=== PATIENT | female | born 1995 | race African-American/Black ===

== ENCOUNTER 2019-07-06 12:51 | Outpatient (CLI) | payer OTHER ==
--- NOTE | 2019-07-06 13:58 | ULT ---
OB ULTRASOUND: 07/06/19 HISTORY: anatomy. FINDINGS: A single live intrauterine twin gestation is seen with measurements corresponding to an estimated ges tational age of 24 weeks, 3 days and MYLES at 10/23/19. The estimated weight measures 692 grams or 1 lb. 8 oz. (56th percentile by Hadlock criteria). biometry: BPD 5.99 cm 24 weeks, 4 days HC 22.04 cm 24 weeks, 1 day AC 19.75 cm 24 weeks, 3 days FL 4.33 cm 24 weeks, 2 days heart rate measures 138 beats per minute. Placenta is posteriorly located without evidence of p lacenta previa. BRYAN measures 17.6 cm. Cervix measures 7 cm in length. A three vessel cord, cord insertion, kidneys, bladder, stomach, four chambered heart, lateral v entricles, cerebellum, spine, lips/nose, upper and lower extremities are visualized. No definite feta l anomalies are seen. IMPRESSION: Single live IUP of 24 weeks, 3 days estimated gestational age and MYLES at 10/23/2019. POS: HILDA
== END 2019-07-06 12:52 | disposition home or self-care (01) ==
LOC: BICULT 12:51
PROVIDERS: ATTEND Family Medicine
DX: O09.892 Supervision of other high risk pregnancies, second trimester (principal); Z3A.24 24 weeks gestation of pregnancy
CPT/HCPCS: 76805

== ENCOUNTER 2019-10-20 10:44 | Inpatient (IN) | payer OTHER ==
[2019-10-20] MEDS ORDERED: Ondansetron PF 4 MG/2 ML Vial IVP PRN ×3 (11:15→15:07)
[2019-10-20] MEDS ORDERED: Bicitra 30 ML UDCUP PO SCH (11:15)
[2019-10-20] MEDS ORDERED: Clindamycin/D5W 900 MG in Premix Bag 1 BAG IVPB SCH (11:15)
[2019-10-20] MEDS ORDERED: hydrALAZINE 20 MG/ML VIAL SLOW IVP PRN (11:15)
[2019-10-20] MEDS ORDERED: Promethazine HCl 25 MG/ML VIAL IM PRN ×3 (11:15→15:07)
[2019-10-20 11:25] VITALS: BMI 35.6
[2019-10-20] MEDS ORDERED: MORPHINE 5 MG/10 ML PF VIAL ONE (11:36)
[2019-10-20] MEDS ORDERED: PHENYLEPHRINE-NS 100 MCG/ML 10 ML SYRINGE ONE (11:37)
[2019-10-20] MEDS ORDERED: Oxytocin 10 UNITS/ML VIAL ONE (11:37)
[2019-10-20] MEDS ORDERED: EPHEDRINE 25 MG/5 ML SYRINGE ONE (11:37)
[2019-10-20] MEDS ORDERED: Ondansetron PF 4 MG/2 ML Vial ONE (11:37)
[2019-10-20 11:46] LABS: Hemoglobin 9.1 g/dL (12.0-16.0); Mean Corpuscular HGB CONC 31.7 g/dL (32.0-36.0); Mean Corpuscular Hemoglobin 27.8 pg (27.0-31.0); Mean Corpuscular Volume 87.7 fL (78.0-98.0); Mean Platelet Volume 8.3 fL (7.4-10.4); Platelet Count 269 thou/uL (130-400); RBC Distribution Width 13.6 % (11.5-14.5); Red Blood Cell (RBC) Count 3.26 mill/uL (4.20-5.40); White Blood Cell (WBC) Count 8.3 thou/uL (4.8-10.8)
[2019-10-20] MEDS ORDERED: Gentamicin Sulfate 80 MG in Premix Bag 1 BAG IVPB SCH (12:00)
[2019-10-20] MEDS: Lactated Ringer's 1,000 ML IV SCH ×2 (12:18→22:00)
[2019-10-20 12:29] LABS: HBSAg Index 0.18 S/CO (0-0.99); Hep B Surf Ag Non-Reactive S/CO (NonReactive); Syphilis Antibody Nonreactive (Nonreactive); Syphilis Antibody Index 0.04 S/CO (<1.00 Non-Reactive)
[2019-10-20] MEDS ORDERED: Methylergonovine 0.2 MG/ML VIAL ONE (13:05)
[2019-10-20] MEDS ORDERED: Fentanyl 100 MCG/2 ML VIAL ONE (13:06)
[2019-10-20] MEDS ORDERED: Midazolam HCl 2 mg/2 ml Vial ONE (13:06)
[2019-10-20] MEDS ORDERED: Ketorolac Tromethamine 30 MG/ML VIAL IVP PRN (13:24)
[2019-10-20] MEDS ORDERED: Ondansetron HCl/PF 4 MG/2 ML Vial IVP PRN (13:24)
[2019-10-20] MEDS ORDERED: Naloxone HCl 0.4 mg/ml Vial IVP PRN ×2 (13:24)
[2019-10-20] MEDS ORDERED: HYDROmorphone 2 MG/ML VIAL SLOW IVP PRN (13:24)
[2019-10-20] MEDS ORDERED: diphenhydrAMINE 50 MG/ML VIAL IVP PRN (13:24)
[2019-10-20] MEDS ORDERED: L&D-Morphine 4 MG/ML VIAL SLOW IVP PRN (13:24)
[2019-10-20] MEDS ORDERED: Naloxone HCl 0.4 mg/ml Vial IV PRN (13:24)
[2019-10-20] MEDS ORDERED: Meperidine HCl/PF 25 MG/ML VIAL SLOW IVP PRN (13:24)
[2019-10-20] MEDS ORDERED: Promethazine HCl 25 MG SUPP PR PRN (13:24)
[2019-10-20] MEDS ORDERED: Communication Order-Pharmacy FS SCH (13:30)
[2019-10-20] MEDS ORDERED: Ketorolac Tromethamine 30 MG/ML VIAL IVP SCH (13:30)
[2019-10-20] MEDS ORDERED: Ketorolac Tromethamine 30 MG/ML VIAL ONE (13:30)
--- NOTE | 2019-10-20 13:46 | PDOC.OPDEL ---
OB Operative/Delivery Note Delivery Dr/Surgeon: Toni Pryor MD Assist: Dena Milton DO, PGY-2 Pre-Delivery Diagnosis: scheduled section Procedure/Post Delivery Dx: repeat low transverse CS Weeks gestation: 39 Anesthesia: spinal - Additional Findings/Plan Placenta delivered: manual removal findings: low transverse hysterotomy without extension Estimated blood loss: 435 mL Compilations/Other Findings: Date of Procedure:10/20/2019, 1300 Attending Primary Surgeon: Toni Pryor MD [employer] Surgeon: Dena Milton DO, PGY-2 Procedure: Repeat low transverse caesarean section Preoperative Diagnosis: 1)Term intrauterine 2)Previous Postoperative Diagnosis: 1)same as above Anesthesia: spinal Indications: The patient is a 24 year old G2,P1001 now 2001 female at 39 weeks gestation who presents for a repeat scheduled . Procedure in Detail: After risks, benefits, and alternatives were explained to the patient, she gave informed consent. Pre-operative antibiotics included Cefazolin 2 gram IV. The patient was taken to the operating room and spinal anesthesia was initiated. She was placed in the supine position with a left tilt and prepped and draped in usual sterile fashion. A Pfannenstiel incision was made with a scalpel and carried down to the level of the fascia which was sharply nicked. The fascial cut was extended bilaterally with Nova sissors. The inferior and superior edges of the cut fascial edges were elevated with Nancy clamps and the underlying rectus muscles were sharply and bluntly dissected free. The recti were divided digitally and retracted manually. The peritoneum was entered bluntly and retracted manually. Bladder blade was placed. The uterus was entered in the midline with the scalpel. Meconium stained fluid was seen. The hysterotomy was extended manually in cranio-caudal direction. The was noted to be vertex and was easily delivered by fundal pressure. Mouth and nares were bulb suctioned. Cord clamped and cut and grossly normal female was handed to waiting nurse. Cord blood was obtained. Placenta was manually extracted, found to be intact with 3 vessel cord and discarded. The uterus was externalized and the endometrium was curetted with a dry lap. Uterus was noted to be boggy throughout and pitocin and methergine were administered. The bladder blade was replaced and the uterus was closed with a running locking 1-0 Monocryl suture. An additional two horizontal mattress sutures were placed. Following this hemostasis was noted. The abdomen was irrigated with saline and suctioned free of clots. Septa film was placed. The uterus was internalized and the hysterotomy was again noted to be hemostatic. The peritoneum was closed with a running non-locking 3-0 Vicryl suture. The fascia was closed with a running non-locking PDS suture. The subcutaneous tissue was irrigated and there were a few bleeders cauterized with Bovie tip. The subcutaneous tissue was then closed with 3 simple interrupted 3-0 Vicryl suture. The skin was approximated with jeramy and a pressure dressing was placed. All counts were correct. The patient tolerated the procedure well and was taken to the recovery room in stable condition. Quantitative Blood Loss: 435 ml Complications: Uterine atony, requiring administration of pitocin and methergine. Specimens: Cord blood sent to lab for blood type Findings: Grossly normal female with Apgars of 9 and 9. Grossly normal placenta with 3 vessel cord discarded. Drains: Draper to gravity draining clear urine Post delivery plan: routine recovery
[2019-10-20] MEDS ORDERED: hydrALAZINE 20 MG/ML VIAL SLOW IVP SCH (15:07)
[2019-10-20] MEDS ORDERED: HYDROcodone/Acetaminophen 5/325 mg Tablet PO PRN (15:07)
[2019-10-20] MEDS ORDERED: Lanolin Ointment 7 GM TUBE TOP PRN (15:07)
[2019-10-20] MEDS ORDERED: Bisacodyl 10 MG SUPP PR PRN (15:07)
[2019-10-20] MEDS ORDERED: NS / Oxytocin 40 units/1000ml 1,000 ML ONE (15:27)
[2019-10-20] MEDS: Ketorolac Tromethamine 30 MG/ML VIAL IVP SCH (17:54)
[2019-10-20] MEDS ORDERED: Sodium Chloride 0.9% 10 ML ONE (20:18)
[2019-10-20] MEDS: diphenhydrAMINE 25 MG CAP PO PRN (20:33)
[2019-10-20] MEDS: Docusate Calcium (SURFAK) 240 MG CAP PO SCH (20:41)
[2019-10-20] MEDS: Ferrous Sulfate 325 MG TAB PO SCH (20:42)
[2019-10-21] MEDS ORDERED: Sodium Chloride 0.9% 0 ML ONE (00:08)
[2019-10-21] MEDS: Ketorolac Tromethamine 30 MG/ML VIAL IVP SCH ×2 (00:43→05:33)
[2019-10-21] MEDS: diphenhydrAMINE 25 MG CAP PO PRN ×2 (00:51→08:02)
[2019-10-21] MEDS ORDERED: Sodium Chloride 0.9% 10 ML ONE ×2 (05:20→07:13)
[2019-10-21 05:49] LABS: Hemoglobin 7.3 g/dL (12.0-16.0); Mean Corpuscular HGB CONC 31.9 g/dL (32.0-36.0); Mean Corpuscular Hemoglobin 27.8 pg (27.0-31.0); Mean Corpuscular Volume 87.3 fL (78.0-98.0); Mean Platelet Volume 8.1 fL (7.4-10.4); Platelet Count 221 thou/uL (130-400); RBC Distribution Width 13.6 % (11.5-14.5); Red Blood Cell (RBC) Count 2.63 mill/uL (4.20-5.40); White Blood Cell (WBC) Count 8.2 thou/uL (4.8-10.8)
[2019-10-21] MEDS: HYDROcodone/Acetaminophen 5/325 mg Tablet PO PRN ×3 (08:03→16:57)
[2019-10-21] MEDS: Docusate Calcium (SURFAK) 240 MG CAP PO SCH ×2 (08:03→21:39)
[2019-10-21] MEDS: Ferrous Sulfate 325 MG TAB PO SCH ×2 (08:05→16:58)
[2019-10-21] MEDS ORDERED: Adacel (T-DAP) 0.5 ML SYRINGE IM ONE (09:00)
[2019-10-21] MEDS: Ibuprofen 800 MG TAB PO SCH ×2 (13:37→21:39)
[2019-10-21] MEDS: Simethicone Chewable 80 MG TAB PO PRN ×2 (13:37→21:38)
[2019-10-22] MEDS: HYDROcodone/Acetaminophen 5/325 mg Tablet PO PRN ×4 (00:48→20:58)
[2019-10-22] MEDS: Ibuprofen 800 MG TAB PO SCH ×3 (05:38→20:58)
[2019-10-22] MEDS: Ferrous Sulfate 325 MG TAB PO SCH ×2 (09:01→20:58)
[2019-10-22] MEDS: Docusate Calcium (SURFAK) 240 MG CAP PO SCH ×2 (09:01→20:58)
[2019-10-23] MEDS: Ibuprofen 800 MG TAB PO SCH ×2 (05:40→15:09)
[2019-10-23 09:58] VITALS: BP 126/67; TEMP 98.8
[2019-10-23] MEDS: Ferrous Sulfate 325 MG TAB PO SCH (12:15)
[2019-10-23] MEDS: HYDROcodone/Acetaminophen 5/325 mg Tablet PO PRN (12:15)
[2019-10-23] MEDS: Docusate Calcium (SURFAK) 240 MG CAP PO SCH (12:16)
== END 2019-10-23 15:15 | disposition home or self-care (01) | DRG 788 ==
LOC: L&D-LIB 10:44 → 3SE 16:02 → EDSTATUS 10-31 13:43
PROVIDERS: ADMIT Family Medicine; ATTEND Family Medicine
PROC: 10D00Z1 Extraction of Products of Conception, Low, Open Approach (ICD-10-PCS; principal; 2019-10-20)
DX: O34.211 Maternal care for low transverse scar from previous cesarean delivery (principal); O99.214 Obesity complicating childbirth; Z3A.39 39 weeks gestation of pregnancy; Z37.0 Single live birth; O62.2 Other uterine inertia
CPT/HCPCS: 36415; 51702; 85027; 86780; 86850; 86900; 86901; 87340; 96372; 99283; J1200; J1580; J1885; J2210; J2250; J2270; J2274; J2310; J2405; J2550; J2590; J3010; Q0163

== ENCOUNTER 2020-07-31 10:24 | Outpatient (CLI) | payer OTHER | END 2020-07-31 10:25 | disposition home or self-care (01) | LOC: BICULT 10:24 | PROVIDERS: ATTEND Family Medicine | DX: O09.892 Supervision of other high risk pregnancies, second trimester (principal) | CPT/HCPCS: 76805 ==

== ENCOUNTER 2022-12-05 01:58 | Emergency (ER) | payer OTHER ==
[2022-12-05 03:25] LABS: #Eosinphils 0.1 thou/uL (0.0-0.7); #Monocytes 0.9 thou/uL (0.11-0.59); #Neutrophils 6.1 thou/uL (1.40-6.50); %Basophils 0.3 % (0.0-1.0); %Lymphocytes 21.6 % (21.0-51.0); %Monocytes 9.3 % (0.0-10.0); %Neutrophils 67.6 % (42.0-75.0); Hematocrit 32.8 % (36.0-47.0); Hemoglobin 10.9 g/dL (12.0-16.0); Mean Corpuscular HGB CONC 33.2 g/dL (32.0-36.0); Mean Corpuscular Hemoglobin 30.8 pg (27.0-31.0); Mean Corpuscular Volume 92.7 fl (78.0-98.0); Mean Platelet Volume 10.7 fL (7.4-10.4); Platelet Count 293 10x3/uL (130-400); Red Blood Cell (RBC) Count 3.54 mill/uL (4.20-5.40); White Blood Cell (WBC) Count 9.1 10x3/uL (4.8-10.8)
[2022-12-05 03:43] LABS: BHCG - Serum Negative (NEGATIVE); Pregs Control Background? CLEAR/WHITE (CLR/WHITE); Pregs Control Bar Appear? YES (CONTROL BAR)
[2022-12-05 04:39] LABS: Albumin 4.8 g/dL (3.5-5.0); Alkaline Phosphatase 55 U/L (40-110); Anion Gap 12 mmol/L (10-20); Bilirubin, Total 0.4 mg/dL (0.2-1.2); Calc. Creatinine Clearance 0 mL/min (70-130); Calcium 9.5 mg/dL (7.8-10.44); Carbon Dioxide 28 mmol/L (22-29); Chloride 101 mmol/L (98-107); Estimated GFR 100; Globulin 3.4 g/dL (2.4-3.5); Glucose 95 mg/dL (70-105); Potassium 3.3 mmol/L (3.5-5.1); Protein, Total 8.2 g/dL (6.0-8.3); Sodium 138 mmol/L (136-145)
[2022-12-05 04:40] LABS: ALT (SGPT) 15 U/L (8-55); AST (SGOT) 20 U/L (5-34); BUN (Urea Nitrogen) 13 mg/dL (7.0-18.7); Lipase 30 U/L (8-78)
[2022-12-05 04:42] LABS: Troponin I Less than 0.010 ng/mL (< 0.028)
[2022-12-05 05:39] LABS: SARS-CoV-2 NAA Rapid Test Not Detected (NotDetected)
[2022-12-05] MEDS ORDERED: Iopamidol 370 76% 100 ML VIAL ONE (09:54)
== END 2022-12-05 06:20 | disposition home or self-care (01) ==
LOC: ERS 01:58
DX: R06.02 Shortness of breath (principal); R07.89 Other chest pain; R10.13 Epigastric pain; F17.210 Nicotine dependence, cigarettes, uncomplicated; Z20.822 Contact with and (suspected) exposure to COVID-19
CPT/HCPCS: 71045; 71275; 80053; 83690; 83735; 83880; 84443; 84484; 84703; 85025; 93005; Q9967

== ENCOUNTER 2022-12-09 07:36 | Emergency (ER) | payer OTHER | END 2022-12-09 08:24 | disposition home or self-care (01) | LOC: ERS 07:36 | DX: K08.89 Other specified disorders of teeth and supporting structures (principal); F17.290 Nicotine dependence, other tobacco product, uncomplicated | CPT/HCPCS: 99282 ==

== ENCOUNTER 2023-03-02 10:06 | Emergency (ER) | payer OTHER ==
[2023-03-02] MEDS ORDERED: Acetaminophen 500 MG TAB ONE (10:35)
[2023-03-02] MEDS ORDERED: Ketorolac Tromethamine 30 MG (1 mL) VIAL ONE (10:36)
== END 2023-03-02 11:39 | disposition home or self-care (01) ==
LOC: ERS 10:06
DX: K02.9 Dental caries, unspecified (principal); K05.30 Chronic periodontitis, unspecified; F17.290 Nicotine dependence, other tobacco product, uncomplicated
CPT/HCPCS: 96372; 99282; J1885